=== PATIENT | male | born 1990 | race Two or more races ===

== ENCOUNTER 2019-08-29 11:41 | Emergency (ER) | payer MEDICAID ==
[~2019-08-29] VITALS: Ht 167.6 cm; Wt 93.0 kg
--- NOTE | 2019-08-29 12:15 | NUR ---
THIS IS A 28 YO M W/ C/O N/V AND RUQ PAIN THAT STARTED THIS MORNING. PT REPORTS DRINKING 1 GALLON OF VODKA EVERY DAY FOR THE PAST MONTH. LAST DRINK WAS EARLY THIS MORNING BUT PT WAS UNABLE TO HOLD IT DOWN DUE TO VOMITING. DENIES PAIN W/ URINATION/ CHEST PAIN/DIZZINESS. PT RESTING ON GURNEY W/ CALL LIGHT IN REACH. RESP EVEN AND UNLABORED, NADN. MICK MANNING AT BEDSIDE FOR ED EVAL.
--- NOTE | 2019-08-29 12:20 | NUR ---
PIV STARTED, LABS DRAWN AND SENT TO LAB. PT MEDICATED PER EMAR. PT RESTING ON Evolv W/ CALL LIGHT IN REACH, SIDE RAILS UPX2. RESP EVEN AND UNLABORED, PÉREZ.
[2019-08-29] MEDS ORDERED: THIAMINE 100MG TABLET ONE (12:22)
[2019-08-29] MEDS ORDERED: ONDANSETRON 2MG/ML, 2ML ONE (12:22)
[2019-08-29] MEDS ORDERED: FAMOTIDINE 20 MG/2 ML ONE (12:22)
--- NOTE | 2019-08-29 12:26 | NUR ---
RAD IN ROOM.
[2019-08-29] MEDS ORDERED: THIAMINE 100MG TABLET PO ONE (12:30)
[2019-08-29] MEDS ORDERED: ONDANSETRON 2MG/ML, 2ML IVPush ONE (12:30)
[2019-08-29] MEDS ORDERED: SODIUM CHLORIDE 0.9% 1,000ML IVBOLUS ONE (12:30)
[2019-08-29] MEDS ORDERED: FAMOTIDINE 20 MG/2 ML IVPush ONE (12:30)
[2019-08-29 12:34] LABS: MEAN CORPUSCULAR HEMOGLOBIN 32.2 pg (27.5-34.5); MEAN CORPUSCULAR HGB CONC 33.8 g/dL (33.2-36.2); MEAN CORPUSCULAR VOLUME 95.5 fL (81-97); MEAN PLATELET VOLUME 10.2 fL (7.4-10.4); PLATELET COUNT 238 x10^3/uL (130-400); RED BLOOD COUNT 4.63 x10^6/uL (4.38-5.82); RED CELL DISTRIBUTION WIDTH 14.6 % (9.4-14.8)
[2019-08-29 12:46] LABS: ALBUMIN 4.2 g/dL (3.4-5.0); ANION GAP 15 mmol/L (5-15); CALCIUM 8.5 mg/dL (8.5-10.1); CHLORIDE 105 mmol/L (98-107)
[2019-08-29 12:49] LABS: ALANINE AMINOTRANSFERASE 203 U/L (12-78); ALKALINE PHOSPHATASE 98 U/L (45-117); BILIRUBIN,TOTAL 0.8 mg/dL (0.2-1.0); CREATININE 0.98 mg/dL (0.7-1.3); TOTAL PROTEIN 9.2 g/dL (6.4-8.2)
[2019-08-29] MEDS ORDERED: ALBUTEROL SULFATE INH (12:51)
--- NOTE | 2019-08-29 12:51 | NUR ---
US IN ROOM.
[2019-08-29 12:52] LABS: MD YES
--- NOTE | 2019-08-29 13:00 | NUR ---
PT REPORTS NO RELIEF OF NAUSEA AFTER ZOFRAN.
[2019-08-29 13:01] LABS: <PLATELET ESTIMATE> ADEQUATE; <RBC MORPHOLOGY> NORMAL; BAND#(MANUAL) 0.04 x10^3/uL; BANDS%(MANUAL) 1 % (0-7); BASOS#(MANUAL) 0.08 x10^3/uL (0-0.1); BASOS% (MANUAL) 2 % (0-1); EOS#(MANUAL) 0.04 x10^3/uL (0.0-0.4); EOS% (MANUAL) 1 % (1-7); LARGE PLATELETS 1+; LYMPH#(MANUAL) 1.56 x10^3/uL (1-3.4); LYMPHS% (MANUAL) 39 % (22-44); MONOS#(MANUAL) 0.28 x10^3/uL (0.3-2.7); MONOS% (MANUAL) 7 % (2-9); SEGS% (MANUAL) 50 % (42-75)
[2019-08-29] MEDS ORDERED: PROCHLORPERAZINE 5 MG/ML, 2ML ONE (13:21)
[2019-08-29] MEDS ORDERED: PROCHLORPERAZINE 5 MG/ML, 2ML IVPush ONE (13:30)
[2019-08-29 14:25] VITALS: BP 142/82
== END 2019-08-29 14:35 | disposition home or self-care (01) ==
LOC: ED 13:09
DX: K29.20 Alcoholic gastritis without bleeding (principal); K22.6 Gastro-esophageal laceration-hemorrhage syndrome; K92.0 Hematemesis; F10.220 Alcohol dependence with intoxication, uncomplicated; F17.290 Nicotine dependence, other tobacco product, uncomplicated; Y90.9 Presence of alcohol in blood, level not specified
CPT/HCPCS: 36415; 71045; 76700; 80053; 80307; 83690; 85025; 93005; 96361; 96374; 96375; 99285; J0780; J2405; J3490; J7030

== ENCOUNTER 2019-10-22 10:43 | Inpatient (IN) | payer MEDICAID ==
[~2019-10-22] VITALS: Ht 167.6 cm; Wt 95.9 kg
[~2019-10-22 10:43] MED LIST: ALBUTEROL SULFATE INH
[2019-10-22] MEDS ORDERED: LORazepam 2 MG/ML, 1ML ONE ×2 (11:29→12:00)
[2019-10-22] MEDS ORDERED: METOCLOPRAMIDE 5 MG/ML, 2ML ONE ×2 (11:29→13:23)
[2019-10-22] MEDS ORDERED: ONDANSETRON 2MG/ML, 2ML ONE (11:29)
[2019-10-22] MEDS ORDERED: METOCLOPRAMIDE 5 MG/ML, 2ML IVPush ONE ×2 (11:30→13:30)
[2019-10-22] MEDS ORDERED: AZITHROMYCIN 500 MG TABLET PO ONE (11:30)
[2019-10-22] MEDS ORDERED: LORazepam 2 MG/ML, 1ML IVPush ONE ×2 (11:30→12:00)
[2019-10-22] MEDS ORDERED: CEFTRIAXONE 250 MG IM ONE (11:30)
[2019-10-22] MEDS ORDERED: ONDANSETRON 2MG/ML, 2ML IVPush ONE (11:30)
[2019-10-22] MEDS ORDERED: SODIUM CHLORIDE FLUSH 10ML SYR IVF ONE (11:30)
[2019-10-22 11:34] LABS: MEAN CORPUSCULAR HEMOGLOBIN 32.8 pg (27.5-34.5); MEAN CORPUSCULAR HGB CONC 33.5 g/dL (33.2-36.2); MEAN CORPUSCULAR VOLUME 97.8 fL (81-97); MEAN PLATELET VOLUME 10.7 fL (7.4-10.4); PLATELET COUNT 211 x10^3/uL (130-400); RED BLOOD COUNT 4.17 x10^6/uL (4.38-5.82); RED CELL DISTRIBUTION WIDTH 14.9 % (9.4-14.8)
--- NOTE | 2019-10-22 11:40 | NUR ---
Assumed care of patient. C/O EtOH withdrawal. Last drink was at midnight. C/O cramping, anxiety and chest tightness that he reports is related to his asthma. No wheezing noted. Placed registered nurse cardiac telemetry, pulse ox and NIBP. Will continue to monitor.
[2019-10-22 11:50] LABS: CHLORIDE 102 mmol/L (98-107)
[2019-10-22 11:59] LABS: ALANINE AMINOTRANSFERASE 239 U/L (12-78); ALBUMIN 3.5 g/dL (3.4-5.0); ALKALINE PHOSPHATASE 130 U/L (45-117); ANION GAP 10 mmol/L (5-15); BILIRUBIN,TOTAL 1.2 mg/dL (0.2-1.0); CALCIUM 9.1 mg/dL (8.5-10.1); CREATININE 0.89 mg/dL (0.7-1.3); TOTAL PROTEIN 8.3 g/dL (6.4-8.2)
[2019-10-22] MEDS ORDERED: AZITHROMYCIN 250 MG TABLET ONE (12:00)
[2019-10-22] MEDS ORDERED: CEFTRIAXONE 250 MG ONE (12:00)
--- NOTE | 2019-10-22 12:10 | NUR ---
Patient sleeping. Arousable to verbal command. Remains mildly tachy. Second dose of ativan held.
[2019-10-22 12:14] LABS: MD YES
[2019-10-22 12:16] LABS: ANISOCYTOSIS 1+; BAND#(MANUAL) 5.68 x10^3/uL; BANDS%(MANUAL) 28 % (0-7); LYMPH#(MANUAL) 1.02 x10^3/uL (1-3.4); LYMPHS% (MANUAL) 5 % (22-44); MONOS% (MANUAL) 1 % (2-9); SEGS% (MANUAL) 66 % (42-75)
[2019-10-22 12:17] LABS: <PLATELET ESTIMATE> ADEQUATE; LARGE PLATELETS 1+
[2019-10-22] MEDS ORDERED: MAGNESIUM SULFATE PMX 2GM/50ML 50 ML IV ONE ×2 (13:00→18:00)
[2019-10-22] MEDS ORDERED: MAGNESIUM SULFATE PMX 2GM/50ML 50 ML ONE ×2 (13:11→17:58)
--- NOTE | 2019-10-22 13:27 | NUR ---
PT VOMITING WHEN TRYING TO DO CT; WENT BACK TO GET MEDS, ALLY AWARE
--- NOTE | 2019-10-22 13:31 | NUR ---
Patient brought back from CT for N/V. Reglan admin. Mag gisela.
[2019-10-22] MEDS ORDERED: CEFEPIME 1 GM in DEXTROSE 5% 50 ML IVPB ONE (14:30)
[2019-10-22] MEDS ORDERED: SODIUM CHLORIDE 0.9% 1,000ML IVBOLUS ONE ×3 (14:30→15:30)
[2019-10-22] MEDS ORDERED: VANCOMYCIN PER PHARMACY MC ONE (14:30)
[2019-10-22] MEDS ORDERED: VANCOMYCIN 2,000 MG in SODIUM CHLORIDE 0.9% 500 ML IV ONE (14:30)
[2019-10-22] MEDS ORDERED: OMNIPAQUE 350 MG/ML, 100ML BOTTLE ONE (14:47)
[2019-10-22] MEDS ORDERED: SODIUM CHLORIDE 0.9% 1,000 ML IV ONE (15:08)
[2019-10-22] MEDS ORDERED: SODIUM CHLORIDE FLUSH 10ML SYR IVF PRN (15:30)
--- NOTE | 2019-10-22 15:54 | NUR ---
SBA assist to the restroom. Provided with blanket. Third liter NS and Meli higgins. No other needs.
--- NOTE | 2019-10-22 16:53 | NUR ---
Pt medicated per emar.
[2019-10-22] MEDS: SODIUM CHLORIDE 0.9% 1,000 ML IV SCH (17:53)
[2019-10-22] MEDS ORDERED: ENOXAPARIN 40 MG/0.4 ML ONE (17:57)
[2019-10-22] MEDS ORDERED: METRONIDAZOLE PMX 500MG/100ML 100 ML ONE (17:58)
[2019-10-22] MEDS ORDERED: CHLORDIAZEPOXIDE 25 MG CAPSULE ONE (17:58)
[2019-10-22] MEDS ORDERED: morphine SULFATE 10 MG/ML, 1ML IVPush PRN (18:00)
[2019-10-22] MEDS ORDERED: LORazepam 2 MG/ML, 1ML IV PRN ×5 (18:00)
[2019-10-22] MEDS ORDERED: ONDANSETRON 2MG/ML, 2ML IVPush PRN (18:00)
[2019-10-22] MEDS ORDERED: METOCLOPRAMIDE 5 MG/ML, 2ML IVPush PRN (18:00)
[2019-10-22] MEDS ORDERED: VANCOMYCIN PER PHARMACY MC PRN (18:00)
--- NOTE | 2019-10-22 18:00 | NUR ---
Patient medicated. Repositioned for comfort. VSS.
[2019-10-22] MEDS: CHLORDIAZEPOXIDE 25 MG CAPSULE PO SCH ×2 (18:01→22:06)
[2019-10-22] MEDS: METRONIDAZOLE PMX 500MG/100ML 100 ML IV SCH (18:01)
[2019-10-22] MEDS: ENOXAPARIN 40 MG/0.4 ML SQ SCH (18:01)
--- NOTE | 2019-10-22 18:23 | NUR ---
Report to SELVIN Rascon
[2019-10-22] MEDS ORDERED: PHARMACOKINETIC MONITORING MC PRN (19:30)
[2019-10-22 20:02] VITALS: BP 136/89
[2019-10-22] MEDS: THIAMINE 200 MG, MVI ADULT 10 ML, FOLIC ACID 1 MG in D5%-0.9% NACL 1,000 ML IV SCH (20:09)
[2019-10-22] MEDS: OXYcodone IR 5MG TABLET PO PRN (22:07)
[2019-10-23] MEDS: CEFEPIME 2 GM in DEXTROSE 5% 100 ML IV SCH ×3 (00:28→17:09)
[2019-10-23 01:25] VITALS: BP 112/75
[2019-10-23] MEDS: SODIUM CHLORIDE 0.9% 1,000 ML IV SCH ×3 (02:50→20:05)
[2019-10-23] MEDS: METRONIDAZOLE PMX 500MG/100ML 100 ML IV SCH ×3 (02:55→18:12)
[2019-10-23] MEDS: VANCOMYCIN 1,800 MG in SODIUM CHLORIDE 0.9% 250 ML IV SCH ×2 (04:17→17:09)
[2019-10-23 04:25] LABS: MICROSCOPIC INDICATED
[2019-10-23 04:41] LABS: MEAN CORPUSCULAR HEMOGLOBIN 33.1 pg (27.5-34.5); MEAN CORPUSCULAR HGB CONC 33.7 g/dL (33.2-36.2); MEAN CORPUSCULAR VOLUME 98.3 fL (81-97); MEAN PLATELET VOLUME 11.1 fL (7.4-10.4); PLATELET COUNT 166 x10^3/uL (130-400); RED BLOOD COUNT 3.92 x10^6/uL (4.38-5.82); RED CELL DISTRIBUTION WIDTH 15.5 % (9.4-14.8)
[2019-10-23 04:47] LABS: ALBUMIN 2.8 g/dL (3.4-5.0); ANION GAP 7 mmol/L (5-15); CALCIUM 8.4 mg/dL (8.5-10.1); CHLORIDE 109 mmol/L (98-107)
[2019-10-23 04:49] LABS: CLOSTRIDIUM DIFFICILE ANTIGEN NEGATIVE; CLOSTRIDIUM DIFFICILE TOXIN NEGATIVE (Negative)
[2019-10-23 05:12] LABS: % IRON SATURATION 13 % (20-55); ALANINE AMINOTRANSFERASE 161 U/L (12-78); ALKALINE PHOSPHATASE 105 U/L (45-117); BILIRUBIN,TOTAL 0.7 mg/dL (0.2-1.0); CREATININE 0.66 mg/dL (0.7-1.3); IRON LEVEL 41 mcg/dL (65-175); TOTAL IRON BINDING CAPACITY 316 mcg/dL (250-450); TOTAL PROTEIN 7.1 g/dL (6.4-8.2)
[2019-10-23 05:41] LABS: MD YES
[2019-10-23 05:43] LABS: <PLATELET ESTIMATE> ADEQUATE; ANISOCYTOSIS 1+; BAND#(MANUAL) 3.61 x10^3/uL; BANDS%(MANUAL) 22 % (0-7); EOS#(MANUAL) 0.16 x10^3/uL (0.0-0.4); EOS% (MANUAL) 1 % (1-7); LARGE PLATELETS 1+; LYMPH#(MANUAL) 1.48 x10^3/uL (1-3.4); LYMPHS% (MANUAL) 9 % (22-44); MONOS#(MANUAL) 0.49 x10^3/uL (0.3-2.7); MONOS% (MANUAL) 3 % (2-9); SEG#(MANUAL) 10.66 x10^3/uL (1.8-6.8); SEGS% (MANUAL) 65 % (42-75)
[2019-10-23] MEDS: CHLORDIAZEPOXIDE 25 MG CAPSULE PO SCH ×3 (05:56→20:06)
[2019-10-23 07:45] VITALS: BP 115/76
[2019-10-23] MEDS: POTASSIUM ACID PHOSPHATE 500 MG TABLET.SOL PO SCH ×3 (08:09→20:05)
[2019-10-23] MEDS: ALBUTEROL HFA 90 MCG/SPRAY INH SCH ×2 (10:18→20:05)
[2019-10-23 12:30] VITALS: BP_SYST 101; BP_SYST 134; BP_DIAS 73; BP_DIAS 91
[2019-10-23] MEDS: ENOXAPARIN 40 MG/0.4 ML SQ SCH (18:12)
[2019-10-23 19:07] VITALS: BP 124/81
[2019-10-23] MEDS: THIAMINE 200 MG, MVI ADULT 10 ML, FOLIC ACID 1 MG in D5%-0.9% NACL 1,000 ML IV SCH (20:05)
[2019-10-24] MEDS: CEFEPIME 2 GM in DEXTROSE 5% 100 ML IV SCH ×3 (00:59→17:21)
[2019-10-24] MEDS: POTASSIUM ACID PHOSPHATE 500 MG TABLET.SOL PO SCH (01:48)
[2019-10-24] MEDS: METRONIDAZOLE PMX 500MG/100ML 100 ML IV SCH ×3 (01:48→17:55)
[2019-10-24] MEDS: OXYcodone IR 5MG TABLET PO PRN (01:55)
[2019-10-24 02:17] VITALS: BP 121/80
[2019-10-24] MEDS: VANCOMYCIN 1,800 MG in SODIUM CHLORIDE 0.9% 250 ML IV SCH (05:09)
[2019-10-24] MEDS: SODIUM CHLORIDE 0.9% 1,000 ML IV SCH ×2 (05:09→15:25)
[2019-10-24 05:48] LABS: BASOPHILS # (AUTO) 0.03 x10^3/uL (0-0.1); BASOPHILS % (AUTO) 0 % (0-1); EOSINOPHILS # (AUTO) 0.16 x10^3/uL (0-0.4); EOSINOPHILS % (AUTO) 2 % (1-7); LYMPHOCYTES # (AUTO) 1.09 x10^3/uL (1-3.4); LYMPHOCYTES % (AUTO) 13 % (22-44); MD NO; MEAN CORPUSCULAR HEMOGLOBIN 32.8 pg (27.5-34.5); MEAN CORPUSCULAR HGB CONC 33.6 g/dL (33.2-36.2); MEAN CORPUSCULAR VOLUME 97.7 fL (81-97); MEAN PLATELET VOLUME 11.1 fL (7.4-10.4); MONOCYTES # (AUTO) 0.59 x10^3/uL (0.2-0.8); MONOCYTES % (AUTO) 7 % (2-9); NEUTROPHILS # (AUTO) 6.67 x10^3/uL (1.8-6.8); NEUTROPHILS % (AUTO) 78 % (42-75); PLATELET COUNT 179 x10^3/uL (130-400); RED CELL DISTRIBUTION WIDTH 14.8 % (9.4-14.8)
[2019-10-24 05:50] LABS: ALANINE AMINOTRANSFERASE 143 U/L (12-78); ALBUMIN 2.5 g/dL (3.4-5.0); ANION GAP 8 mmol/L (5-15); CALCIUM 8.2 mg/dL (8.5-10.1); CHLORIDE 106 mmol/L (98-107); CREATININE 0.53 mg/dL (0.7-1.3)
[2019-10-24 05:52] LABS: ALKALINE PHOSPHATASE 98 U/L (45-117); BILIRUBIN,TOTAL 0.5 mg/dL (0.2-1.0); TOTAL PROTEIN 7.4 g/dL (6.4-8.2)
[2019-10-24 09:01] VITALS: BP 118/80
[2019-10-24] MEDS: ALBUTEROL HFA 90 MCG/SPRAY INH SCH ×2 (09:15→20:23)
[2019-10-24] MEDS: CHLORDIAZEPOXIDE 25 MG CAPSULE PO SCH ×2 (09:16→15:25)
[2019-10-24 13:03] VITALS: BP 133/88
[2019-10-24] MEDS: ENOXAPARIN 40 MG/0.4 ML SQ SCH (17:55)
[2019-10-24] MEDS: VANCOMYCIN 2,000 MG in SODIUM CHLORIDE 0.9% 500 ML IV SCH (18:13)
[2019-10-24 18:43] VITALS: BP 143/94
[2019-10-24] MEDS: THIAMINE 200 MG, MVI ADULT 10 ML, FOLIC ACID 1 MG in D5%-0.9% NACL 1,000 ML IV SCH (20:22)
[2019-10-25] MEDS: CEFEPIME 2 GM in DEXTROSE 5% 100 ML IV SCH ×2 (00:49→10:45)
[2019-10-25 01:20] VITALS: BP 140/89
[2019-10-25] MEDS: METRONIDAZOLE PMX 500MG/100ML 100 ML IV SCH ×2 (01:46→09:11)
[2019-10-25] MEDS: SODIUM CHLORIDE 0.9% 1,000 ML IV SCH (04:00)
[2019-10-25] MEDS: VANCOMYCIN 2,000 MG in SODIUM CHLORIDE 0.9% 500 ML IV SCH (05:48)
[2019-10-25] MEDS: ALBUTEROL HFA 90 MCG/SPRAY INH SCH (09:11)
[2019-10-25 09:22] VITALS: BP 146/88
[2019-10-25] MEDS ORDERED: LACT1TAB13 PO (12:42)
[2019-10-25] MEDS ORDERED: METR500T PO (12:42)
[2019-10-25] MEDS ORDERED: CEFD300C37 PO (12:42)
[2019-10-25] MEDS ORDERED: CEFDINIR 300 MG CAPSULE PO SCH (13:00)
[2019-10-25 13:30] VITALS: BP 139/87
[2019-10-25] MEDS ORDERED: metroNIDAZOLE 500 MG TABLET PO SCH (16:00)
== END 2019-10-25 14:33 | disposition home or self-care (01) | DRG 720 ==
LOC: ED 13:39 → EDIP 15:08 → 4WST 19:14
PROVIDERS: ADMIT Internal Medicine; ATTEND Internal Medicine
DX: A41.9 Sepsis, unspecified organism (principal); D53.9 Nutritional anemia, unspecified; E83.39 Other disorders of phosphorus metabolism; E83.42 Hypomagnesemia; E87.1 Hypo-osmolality and hyponatremia; F10.239 Alcohol dependence with withdrawal, unspecified; E87.2 Acidosis; F12.90 Cannabis use, unspecified, uncomplicated; F17.200 Nicotine dependence, unspecified, uncomplicated; J45.909 Unspecified asthma, uncomplicated; K52.9 Noninfective gastroenteritis and colitis, unspecified; Z83.3 Family history of diabetes mellitus; K70.10 Alcoholic hepatitis without ascites
CPT/HCPCS: 36415; 71045; 74177; 80053; 80074; 80202; 81001; 82550; 82607; 83540; 83550; 83605; 83690; 83735; 84100; 84443; 85025; 86592; 87040; 87086; 87324; 93005; 96361; 96365; 96367; 96372; 96375; G0378; J0692; J0696; J1650; J2405; J3370; J3411; J7042; Q9967; J2060; J2270; J2765; J3475; J7030; J7040; J7050